=== PATIENT | female | born 1960 | race Hispanic/Latino ===

== ENCOUNTER 2019-05-23 14:05 | Observation (INO) | payer OTHER ==
--- NOTE | 2019-05-23 14:51 | Emergency Department Report ---
- General Chief complaint: Medical Clearance Stated complaint: LOW BLOOD PRESSURE/SYNCOPAL Source: patient, EMS Mode of arrival: Stretcher Limitations: No Limitations - History of Present Illness Initial comments: 58-year-old female with a past medical history of diabetes (insulin and pills) and hypertension presents to the hospital complains of no syncopal episode. Patient had taken a couple bites of her Lunch and had a sensation to have a bowel movement. In the bathroom she did have a bowel movement and she also had diaphoresis, generalized weakness, tunnel vision, perioral numbness and felt like she was going to pass out. She called for help and subsequently evaluated by the fire department. Patient was so diaphoretic they had to use additional gauze to secure EKG leads. Initial blood pressure 72/40 and Accu-Chek was 170. Patient received 4 Zofran and 700 mL of normal saline prior to arrival and feels back to normal with normal vital signs. She denies any preceding or current headache, chest pain, shortness of breath, abdominal pain, melena, hematochezia, hematemesis, fever, infectious symptoms, or dysuria. Denies history of CAD. States she had a stress test "a couple years ago" that was okay. She does not smoke cigarettes. PMD: [facility]. Severity scale (0 -10): 0 - Related Data Allergies Allergy/AdvReac Type Severity Reaction Status Date / Time No Known Allergies Allergy Unverified 05/23/19 14:18 ED Review of Systems ROS: Stated complaint: LOW BLOOD PRESSURE/SYNCOPAL Other details as noted in HPI Comment: All other systems reviewed and negative ED Past Medical Hx - Past Medical History Hx Hypertension: Yes Hx Diabetes: Yes - Surgical History Past Surgical History?: No - Social History Smoking Status: Never Smoker ED Physical Exam - General Limitations: No Limitations - Other Other exam information: General: No acute distress Head: Atraumatic Eyes: normal appearance ENT: Moist mucous membranes Neck: Normal appearance, no midline tenderness Chest: Clear to auscultation bilaterally CV: Regular rate and rhythm Abdomen: Soft, normal bowel sounds, nontender, nondistended, no rebound or guarding Back: Normal inspection Extremity: Normal inspection infection, full range of motion Neuro: Alert O x 3, no facial asymmetry, speech clear, no gross motor sensory deficit Psych: Appropriate behavior Skin: No rash - Assessment Assessment Interval: Baseline - Level of Consciousness 1a. Level of Consciousness: alert/keenly responsive - LOC Questions 1b. LOC Questions: answers both correctly - LOC Command 1c. LOC Commands: performs tasks correctly - Best Gaze 2. Best Gaze: normal - Visual 3. Visual: no visual loss - Facial Palsy 4. Facial Palsy: normal symmetrical movement - Motor Arm 5a. Motor Arm Left: no drift 5b. Motor Arm Right: no drift - Motor Leg 6a. Motor Leg Left: no drift 6b. Motor Leg Right: no drift - Limb Ataxia 7. Limb Ataxia: absent - Sensory 8. Sensory: normal - Best Language 9. Best Language: no aphasia - Dysarthria 10. Dysarthria: normal - Extinction and Inattention 11. Extinction/Inattention: no abnormality - Scoring Total Score: 0 Stroke Severity: No Stroke Symptoms ED Course Vital Signs 05/23/19 05/23/19 14:22 14:28 Temperature 97.9 F Pulse Rate 88 Respiratory 16 17 Rate Blood Pressure 112/57 [Right] O2 Sat by Pulse 97 97 Oximetry ED Medical Decision Making - Lab Data Result diagrams: 05/23/19 15:14 05/23/19 15:14 Lab Results 05/23/19 05/23/19 05/23/19 Range/Units 14:44 15:14 15:14 WBC 11.8 H (4.5-11.0) K/mm3 RBC 4.22 (3.65-5.03) M/mm3 Hgb 12.5 (10.1-14.3) gm/dl Hct 37.2 (30.3-42.9) % MCV 88 (79-97) fl MCH 30 (28-32) pg MCHC 34 (30-34) % RDW 13.8 (13.2-15.2) % Plt Count 333 (140-440) K/mm3 Lymph % (Auto) 16.7 (13.4-35.0) % [place] % (Auto) 6.4 (0.0-7.3) % Eos % (Auto) 1.1 (0.0-4.3) % Baso % (Auto) 0.6 (0.0-1.8) % Lymph # 2.0 (1.2-5.4) K/mm3 [place] # 0.8 (0.0-0.8) K/mm3 Eos # 0.1 (0.0-0.4) K/mm3 Baso # 0.1 (0.0-0.1) K/mm3 Seg Neutrophils % 75.2 H (40.0-70.0) % Seg Neutrophils # 8.9 H (1.8-7.7) K/mm3 PT 12.5 (12.2-14.9) Sec. INR 0.92 (0.87-1.13) APTT 25.4 (24.2-36.6) Sec. Sodium (137-145) mmol/L Potassium (3.6-5.0) mmol/L Chloride (98-107) mmol/L Carbon Dioxide (22-30) mmol/L Anion Gap mmol/L BUN (7-17) mg/dL Creatinine (0.7-1.2) mg/dL Estimated GFR ml/min BUN/Creatinine Ratio % Glucose (65-100) mg/dL POC Glucose 141 H (70-105) Calcium (8.4-10.2) mg/dL Magnesium (1.7-2.3) mg/dL Total Bilirubin (0.1-1.2) mg/dL AST (5-40) units/L ALT (7-56) units/L Alkaline Phosphatase (35-129) units/L Troponin T (0.00-0.029) ng/mL Total Protein (6.3-8.2) g/dL Albumin (3.9-5) g/dL Albumin/Globulin Ratio % 12/17/19 Range/Units 15:14 WBC (4.5-11.0) K/mm3 RBC (3.65-5.03) M/mm3 Hgb (10.1-14.3) gm/dl Hct (30.3-42.9) % MCV (79-97) fl MCH (28-32) pg MCHC (30-34) % RDW (13.2-15.2) % Plt Count (140-440) K/mm3 Lymph % (Auto) (13.4-35.0) % [place] % (Auto) (0.0-7.3) % Eos % (Auto) (0.0-4.3) % Baso % (Auto) (0.0-1.8) % Lymph # (1.2-5.4) K/mm3 [place] # (0.0-0.8) K/mm3 Eos # (0.0-0.4) K/mm3 Baso # (0.0-0.1) K/mm3 Seg Neutrophils % (40.0-70.0) % Seg Neutrophils # (1.8-7.7) K/mm3 PT (12.2-14.9) Sec. INR (0.87-1.13) APTT (24.2-36.6) Sec. Sodium 140 (137-145) mmol/L Potassium 4.2 (3.6-5.0) mmol/L Chloride 100.0 (98-107) mmol/L Carbon Dioxide 18 L (22-30) mmol/L Anion Gap 26 mmol/L BUN 21 H (7-17) mg/dL Creatinine 1.0 (0.7-1.2) mg/dL Estimated GFR 57 ml/min BUN/Creatinine Ratio 21 % Glucose 152 H (65-100) mg/dL POC Glucose (70-105) Calcium 9.7 (8.4-10.2) mg/dL Magnesium 1.60 L (1.7-2.3) mg/dL Total Bilirubin 0.20 (0.1-1.2) mg/dL AST 43 H (5-40) units/L ALT 30 (7-56) units/L Alkaline Phosphatase 53 (35-129) units/L Troponin T < 0.010 (0.00-0.029) ng/mL Total Protein 7.3 (6.3-8.2) g/dL Albumin 3.9 (3.9-5) g/dL Albumin/Globulin Ratio 1.1 % - EKG Data -: EKG Interpreted by [facility] EKG shows normal: sinus rhythm, ST-T waves (no stemi) Rate: normal - EKG Data When compared to previous EKG there are: previous EKG unavailable - Radiology Data Radiology results: report reviewed CHEST 1 VIEW INDICATION: near syncope. Syncopal episode yesterday COMPARISON: None FINDINGS: Support devices: None. Heart: Within normal limits. Lungs/Pleura: No acute air space or interstitial disease. Additional findings: None. IMPRESSION: 1. No acute findings. Critical Care Time: No Critical care attestation.: If time is entered above; I have spent that time in minutes in the direct care of this critically ill patient, excluding procedure time. ED Disposition Clinical Impression: Near syncope, Hypotension, Diaphoresis, Diabetes Disposition: 09 OP ADMIT IP TO THIS HOSP Is pt being admited?: Yes Condition: Stable Time of Disposition: 16:05 (Dr Vásquez/hosp)
--- NOTE | 2019-05-23 14:55 | XRay Report ---
CHEST 1 VIEW INDICATION: near syncope. Syncopal episode yesterday COMPARISON: None FINDINGS: Support devices: None. Heart: Within normal limits. Lungs/Pleura: No acute air space or interstitial disease. Additional findings: None. IMPRESSION: 1. No acute findings. Signer Name: Jamie Mistry MD Signed: 05/23/2019 2:51 PM Workstation Name: [id number]
[2019-05-23 15:33] LABS: Basophils # (Auto) 0.1 K/mm3 (0.0-0.1); Basophils % (Auto) 0.6 % (0.0-1.8); Eosinophils # (Auto) 0.1 K/mm3 (0.0-0.4); Eosinophils % (Auto) 1.1 % (0.0-4.3); Hematocrit 37.2 % (30.3-42.9); Hemoglobin 12.5 gm/dl (10.1-14.3); Lymphocytes % (Auto) 16.7 % (13.4-35.0); Mean Corpuscular HGB Conc 34 % (30-34); Mean Corpuscular Volume 88 fl (79-97); Monocytes # (Auto) 0.8 K/mm3 (0.0-0.8); Monocytes % (Auto) 6.4 % (0.0-7.3); Platelet Count 333 K/mm3 (140-440); Red Blood Count 4.22 M/mm3 (3.65-5.03); Red Cell Distribution Width 13.8 % (13.2-15.2)
[2019-05-23 15:42] LABS: INR 0.92 (0.87-1.13)
[2019-05-23 15:43] LABS: Partial Thromboplastin Time 25.4 Sec. (24.2-36.6)
[2019-05-23 15:54] LABS: Alanine Aminotransferase 30 units/L (7-56); Albumin 3.9 g/dL (3.9-5); BUN/Creatinine Ratio 21; Blood Urea Nitrogen 21 mg/dL (7-17); Calcium 9.7 mg/dL (8.4-10.2); Hemolysis Index 14
[2019-05-23 16:29] LABS: Bacteria,Urine 1+ /HPF (Negative); Bilirubin,Urine NEG (Negative); Blood,Urine NEG (Negative); Color,Urine Yellow (Yellow); Mucus,Urine FEW /HPF; Urobilinogen,Urine < 2.0 mg/dL (<2.0)
--- NOTE | 2019-05-23 21:30 | History and Physical Report ---
History of Present Illness Date of examination: 05/23/19 Date of admission: 05/23/19 16:06 Chief complaint: Near pass out 1 hr ago History of present illness: 58-year-old female with a past medical history of diabetes (insulin and pills) and hypertension presents to the hospital for nearly passing out.Was eating and became light headed and very diaporetic.Was about to pass out but could restrain herself.Patient is on Insulin for IDDM.Initial BG was in 140's No fever or chills.No HTN Past Medical History Hypertension: Yes Diabetes: Yes Surgical History Past Surgical History?: No Social History Smoking Status: Never Smoker Fam Hx Hypertension Review of Systems ROS: Stated complaint: LOW BLOOD PRESSURE/SYNCOPAL Other details as noted in HPI Comment: All other systems reviewed and negative Medications and Allergies Allergies Allergy/AdvReac Type Severity Reaction Status Date / Time No Known Allergies Allergy Unverified 05/23/19 14:18 Home Medications Medication Instructions Recorded Confirmed Last Taken Type Fenofibrate Nanocrystallized 160 mg PO QDAY 05/23/19 05/23/19 Unknown History [Fenofibrate] Icosapent Ethyl [Vascepa] 2 gm PO BID 05/23/19 05/23/19 Unknown History Insulin NPH Hum/Reg Insulin Hm 40 units SQ BID 05/23/19 05/23/19 Unknown History [HumuLIN 70-30 Vial] Liraglutide [Victoza 2-Joby] 1.8 mg SQ QDAY 05/23/19 05/23/19 Unknown History Losartan [Cozaar] 50 mg PO QDAY 05/23/19 05/23/19 Unknown History Metformin HCl [metFORMIN] 1,000 mg PO BID 05/23/19 05/23/19 Unknown History Venlafaxine [Effexor] 75 mg PO QDAY 05/23/19 05/23/19 Unknown History Exam - Constitutional Vitals: Temp Pulse Resp BP Pulse Ox 98.2 F 97 H 18 174/76 91 05/23/19 19:45 05/23/19 19:45 05/23/19 19:45 05/23/19 19:45 05/23/19 19:45 General appearance: Present: no acute distress, well-nourished - EENT Eyes: Present: PERRL ENT: hearing intact, clear oral mucosa - Neck Neck: Present: supple, normal ROM - Respiratory Respiratory effort: normal Respiratory: bilateral: CTA - Cardiovascular Heart rate: 78 Rhythm: regular Heart Sounds: Present: S1 & S2. Absent: rub, click - Extremities Extremities: no ischemia, pulses intact, pulses symmetrical, No edema Peripheral Pulses: within normal limits - Abdominal General gastrointestinal: Present: soft, non-tender, non-distended, normal bowel sounds Female genitourinary: Present: normal - Integumentary Integumentary: Present: clear, warm, dry - Musculoskeletal Musculoskeletal: gait normal, strength equal bilaterally - Psychiatric Psychiatric: appropriate mood/affect, intact judgment & insight - Neurologic Neurologic: CNII-XII intact, moves all extremities - Allied Health Allied health notes reviewed: nursing, case management Results - Labs CBC & Chem 7: 05/23/19 15:14 05/23/19 15:14 Labs: Laboratory Last Values WBC 11.8 K/mm3 (4.5-11.0) H 05/23/19 15:14 RBC 4.22 M/mm3 (3.65-5.03) 05/23/19 15:14 Hgb 12.5 gm/dl (10.1-14.3) 05/23/19 15:14 Hct 37.2 % (30.3-42.9) 05/23/19 15:14 MCV 88 fl (79-97) 05/23/19 15:14 MCH 30 pg (28-32) 05/23/19 15:14 MCHC 34 % (30-34) 05/23/19 15:14 RDW 13.8 % (13.2-15.2) 05/23/19 15:14 Plt Count 333 K/mm3 (140-440) 05/23/19 15:14 Lymph % (Auto) 16.7 % (13.4-35.0) 05/23/19 15:14 [place] % (Auto) 6.4 % (0.0-7.3) 05/23/19 15:14 Eos % (Auto) 1.1 % (0.0-4.3) 05/23/19 15:14 Baso % (Auto) 0.6 % (0.0-1.8) 05/23/19 15:14 Lymph # 2.0 K/mm3 (1.2-5.4) 05/23/19 15:14 [place] # 0.8 K/mm3 (0.0-0.8) 05/23/19 15:14 Eos # 0.1 K/mm3 (0.0-0.4) 05/23/19 15:14 Baso # 0.1 K/mm3 (0.0-0.1) 05/23/19 15:14 Seg Neutrophils % 75.2 % (40.0-70.0) H 05/23/19 15:14 Seg Neutrophils # 8.9 K/mm3 (1.8-7.7) H 05/23/19 15:14 PT 12.5 Sec. (12.2-14.9) 05/23/19 15:14 INR 0.92 (0.87-1.13) 05/23/19 15:14 APTT 25.4 Sec. (24.2-36.6) 05/23/19 15:14 Sodium 140 mmol/L (137-145) 05/23/19 15:14 Potassium 4.2 mmol/L (3.6-5.0) 05/23/19 15:14 Chloride 100.0 mmol/L (98-107) 05/23/19 15:14 Carbon Dioxide 18 mmol/L (22-30) L 05/23/19 15:14 Anion Gap 26 mmol/L 05/23/19 15:14 BUN 21 mg/dL (7-17) H 05/23/19 15:14 Creatinine 1.0 mg/dL (0.7-1.2) 05/23/19 15:14 Estimated GFR 57 ml/min 05/23/19 15:14 BUN/Creatinine Ratio 21 % 05/23/19 15:14 Glucose 152 mg/dL (65-100) H 05/23/19 15:14 POC Glucose 230 (70-105) H 05/23/19 21:10 Calcium 9.7 mg/dL (8.4-10.2) 05/23/19 15:14 Magnesium 1.60 mg/dL (1.7-2.3) L 05/23/19 15:14 Total Bilirubin 0.20 mg/dL (0.1-1.2) 05/23/19 15:14 AST 43 units/L (5-40) H 05/23/19 15:14 ALT 30 units/L (7-56) 05/23/19 15:14 Alkaline Phosphatase 53 units/L (35-129) 05/23/19 15:14 Troponin T < 0.010 ng/mL (0.00-0.029) 05/23/19 20:12 Troponin T < 0.010 ng/mL (0.00-0.029) 05/23/19 20:12 Total Protein 7.3 g/dL (6.3-8.2) 05/23/19 15:14 Albumin 3.9 g/dL (3.9-5) 05/23/19 15:14 Albumin/Globulin Ratio 1.1 % 05/23/19 15:14 Urine Color Yellow (Yellow) 05/23/19 15:51 Urine Turbidity Clear (Clear) 05/23/19 15:51 Urine pH 5.0 (5.0-7.0) 05/23/19 15:51 Ur Specific [place] 1.025 (1.003-1.030) 05/23/19 15:51 Urine Protein 100 mg/dl mg/dL (Negative) 05/23/19 15:51 Urine Glucose (UA) >=500 mg/dL (Negative) 05/23/19 15:51 Urine Ketones Neg mg/dL (Negative) 05/23/19 15:51 Urine Blood Neg (Negative) 05/23/19 15:51 Urine Nitrite Neg (Negative) 05/23/19 15:51 Urine Bilirubin Neg (Negative) 05/23/19 15:51 Urine Urobilinogen < 2.0 mg/dL (<2.0) 05/23/19 15:51 Ur Leukocyte Esterase Neg (Negative) 05/23/19 15:51 Urine WBC (Auto) 1.0 /HPF (0.0-6.0) 05/23/19 15:51 Urine RBC (Auto) 4.0 /HPF (0.0-6.0) 05/23/19 15:51 U Epithel Cells (Auto) 1.0 /HPF (0-13.0) 05/23/19 15:51 Urine Bacteria (Auto) 1+ /HPF (Negative) 05/23/19 15:51 Urine Mucus Few /HPF 05/23/19 15:51 Short CBC 05/23/19 Range/Units 15:14 WBC 11.8 H (4.5-11.0) K/mm3 Hgb 12.5 (10.1-14.3) gm/dl Hct 37.2 (30.3-42.9) % Plt Count 333 (140-440) K/mm3 BMP 05/23/19 15:14 Sodium 140 Potassium 4.2 Chloride 100.0 Carbon Dioxide 18 L BUN 21 H Creatinine 1.0 Glucose 152 H Calcium 9.7 Cardiac Enzymes 05/23/19 05/23/19 05/23/19 Range/Units 15:14 20:12 20:12 Troponin T < 0.010 < 0.010 < 0.010 (0.00-0.029) ng/mL 05/23/19 05/24/19 Range/Units 21:56 04:33 Troponin T < 0.010 < 0.010 (0.00-0.029) ng/mL Liver Function 05/23/19 Range/Units 15:14 Total Bilirubin 0.20 (0.1-1.2) mg/dL AST 43 H (5-40) units/L ALT 30 (7-56) units/L Alkaline Phosphatase 53 (35-129) units/L Albumin 3.9 (3.9-5) g/dL Urine 05/23/19 Range/Units 15:51 Urine Color Yellow (Yellow) Urine pH 5.0 (5.0-7.0) Ur Specific [place] 1.025 (1.003-1.030) Urine Protein 100 mg/dl (Negative) mg/dL Urine Glucose (UA) >=500 (Negative) mg/dL - Imaging and Cardiology EKG: report reviewed Chest x-ray: report reviewed (NAF) Assessment and Plan Advance Directives: Yes (Full code) VTE prophylaxis?: Chemical Plan of care discussed with patient/family: Yes - Patient Problems (1) Near syncope Current Visit: Yes Status: Acute Plan to address problem: Syncope w/u Probably vasovagal BG was normal. 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
[2019-05-23] MEDS ORDERED: ACETAMINOPHEN 325 MG TAB PO PRN (21:58)
[2019-05-23] MEDS ORDERED: ICOSAPENT ETHYL 2 GM PO SCH (22:00)
[2019-05-23] MEDS: LOSARTAN 50 MG TAB PO SCH (22:15)
[2019-05-23] MEDS: VENLAFAXINE 75 MG TAB PO SCH (22:16)
[2019-05-23] MEDS: metFORMIN 500 MG TAB PO SCH (22:16)
[2019-05-23] MEDS: INSULIN NPH/REGULAR 70/30 INJ SUB-Q SCH (22:35)
[2019-05-24] MEDS ORDERED: REGADENOSON 0.4 MG/5 ML INJ IV ONE (07:30)
[2019-05-24] MEDS ORDERED: MAGNESIUM SULFATE 2 GM/50 ML BAG IV ONE (09:00)
[2019-05-24] MEDS ORDERED: FENOFIBRATE 145 MG TAB PO SCH (10:00)
[2019-05-24] MEDS: LOSARTAN 50 MG TAB PO SCH (11:55)
[2019-05-24] MEDS: VENLAFAXINE 75 MG TAB PO SCH (11:55)
[2019-05-24 11:56] VITALS: BP 173/90
[2019-05-24] MEDS: metFORMIN 500 MG TAB PO SCH ×2 (11:56→17:27)
[2019-05-24] MEDS: INSULIN NPH/REGULAR 70/30 INJ SUB-Q SCH (12:25)
--- NOTE | 2019-05-24 13:36 | Vascular Lab Report ---
"DUPLEX DOPPLER ULTRASOUND CAROTID, BILATERAL INDICATION: syncope. FINDINGS: RIGHT CAROTID: Mild scattered. Atherosclerotic plaque. Right CCA velocity: 75 cm/sec. Right ICA peak systolic velocity: 76 cm/sec. ICA/CCA PSV Ratio: 1. Right Vertebral Artery: Antegrade flow. LEFT CAROTID: Mild scattered atherosclerotic plaque. Left CCA velocity: 85 cm/sec. Left ICA peak systolic velocity: 78 cm/sec. ICA/CCA PSV Ratio: 0.9. Left Vertebral Artery: Antegrade flow. IMPRESSION: 1. Right Internal Carotid Artery: Less than 50% diameter stenosis. 2. Left Internal Carotid Artery: Less than 50% diameter stenosis. Velocity criteria are extrapolated from diameter data as defined by the Society of Radiologists in Ul trasound Consensus Conference, Radiology 2003; 229;340-346. Degree of || ICA PSV || Plaque || ICA/CCA Stenosis (%) || (cm/sec) || estimate (%) || PSV Ratio - Normal...............<125..............None.................<2.0 - <50....................<125..............<50....................<2.0 - 50-69................125-230.........>50....................2.0-4.0 - >70 but <100....>230..............>50....................>4.0 - Near...................High, low, .....visible................variable occlusion or none - Total...................None.............visible;................N/A occlusion no lumen Signer Name: Obey Brambila MD Signed: 05/24/2019 1:32 PM Workstation Name: [id number]"
--- NOTE | 2019-05-24 15:29 | Discharge Summary ---
Providers - Providers Date of Admission: 05/23/19 16:06 Date of discharge: 05/24/19 Attending physician: ERICKA MCNALLY Primary care physician: [employer] Hospitalization Condition: Stable Hospital course: Patient is a 58 yo woman with a past medical history of type 2 IDDM (on insulin and pills) and hypertension who presents with Near syncope episode associated with diaphoresis, generalized weakness, tunnel vision, perioral numbness and felt like she was going to pass out with having a bowel movement. Initial blood pressure was 72/40 and Accu-Chek was 170. PMD: [facility]. She was just started on new medication called Jaridance via office samples from PMD. Jardiance can cause orthostatic hypotension. Near syncope -most likely due to new medication Jardiance causing OH -stop Jardiance -negative stress test -negative Carotid doppler -ECHO pending, I called and spoke with Dr. 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 Plan to address problem: Cnt coverage stop Jardiance (interersting to note that she is on Victoza along with 70/30 and metformin then Jardiance was added)-unusually combo Education done DVT prophylaxis Current Visit: Yes Status: Acute Plan to address problem: On Heparin and GI prophylaxis Disposition: TO HOME OR SELFCARE Time spent for discharge: 34 minutes Core Measure Documentation - Palliative Care Palliative Care/ Comfort Measures: Not Applicable - Core Measures Any of the following diagnoses?: none - VTE Discharge Requirements Deep Vein Thrombosis/Pulmonary Embolism Present on Admission: No Has pt received <5 days of overlap therapy or INR<2.0: No Anticoagulant overlap therapy prescribed at discharge: No Contraindication No Overlap Therapy order at DC: Not Indicated Exam - Physical Exam Narrative exam: Gen: WDWN, NAD, Awake, Alert, Orientated x 2 HEENT: NCAT, EOMI, PERRL, OP Clear Neck: supple, no adenopathy, no thyromegaly, no JVD CVS/Heart: RRR, normal S1S2, pulses present bilaterally Chest/Lungs: CTA B, Symmetrical chest expansion, good air entry bilaterally GI/Abdomen: soft, NTND, good bowel sounds, no guarding or rebound /Bladder: no suprapubic tenderness, no CVA or paraspinal tenderness Extermity/Skin: no c/c/e, no obvious rash, multiple color tattoos MSK: FROM x 4 Neuro: CN 2-12 grossly intact, no new focal deficits Psych: calm - Constitutional Vitals: Temp Pulse Resp BP Pulse Ox 98.0 F 94 H 18 173/90 98 05/24/19 04:25 05/24/19 11:55 05/24/19 13:01 05/24/19 11:55 05/24/19 13:01 Plan Activity: other (no strenous activity until cleared by PCP) Diet: low salt, diabetic Special Instructions: record blood sugar diary (fasting then with meals) Additional Instructions: 1) One of the major adverse reaction Jardiance is (orthostatic) Hypotension, so stop taking and notify your PCP Follow up with: PRIMARY MD YOSELIN [Primary Care Provider] - 3-5 Days
--- NOTE | 2019-05-24 15:43 | Progress Note ---
Assessment and Plan Assessment and plan: Patient is a 58 yo woman with a past medical history of type 2 IDDM (on insulin and pills) and hypertension who presents with Near syncope episode associated with diaphoresis, generalized weakness, tunnel vision, perioral numbness and felt like she was going to pass out with having a bowel movement. Initial blood pressure was 72/40 and Accu-Chek was 170. PMD: [facility]. She was just started on new medication called Jaridance via office samples from PMD. Jardiance can cause orthostatic hypotension. Near syncope -most likely due to new medication Jardiance causing OH -stop Jardiance -negative stress test -negative Carotid doppler -ECHO pending, I called and spoke with Dr. Farrar, unavailable at this time Hypotension -Iatrogenic related resolved HTN (hypertension) Current Visit: Yes Status: Chronic Qualifiers: Hypertension type: essential hypertension Qualified Code(s): I10 - Essential (primary) hypertension Plan to address problem: Cont antihypertensives T2DM (type 2 diabetes mellitus) Current Visit: Yes Status: Chronic Qualifiers: Diabetes mellitus oysterman insulin use: unspecified oysterman insulin use status Plan to address problem: Cnt coverage stop Jardiance (interersting to note that she is on Victoza along with 70/30 and metformin then Jardiance was added)-unusually combo Education done DVT prophylaxis Current Visit: Yes Status: Acute Plan to address problem: On Heparin and GI prophylaxis Disposition: continue obs care, ready for discharge, waiting on ECHO results History Interval history: Patient was seen and examined. Follow-up on current diagnosis of Near syncope. No overnight events reported to me. Patient denies any chest pain, shortness breath, nausea/vomiting or severe headaches. Imaging, nursing note, chart, labs and old chart reviewed. Discussed with patient. Hospitalist Physical - Physical exam Narrative exam: Gen: WDWN, NAD, Awake, Alert, Orientated x 2 HEENT: NCAT, EOMI, PERRL, OP Clear Neck: supple, no adenopathy, no thyromegaly, no JVD CVS/Heart: RRR, normal S1S2, pulses present bilaterally Chest/Lungs: CTA B, Symmetrical chest expansion, good air entry bilaterally GI/Abdomen: soft, NTND, good bowel sounds, no guarding or rebound /Bladder: no suprapubic tenderness, no CVA or paraspinal tenderness Extermity/Skin: no c/c/e, no obvious rash, multiple color tattoos MSK: FROM x 4 Neuro: CN 2-12 grossly intact, no new focal deficits Psych: calm - Constitutional Vitals: Temp Pulse Resp BP Pulse Ox 98.0 F 94 H 18 173/90 98 05/24/19 04:25 05/24/19 11:55 05/24/19 13:01 05/24/19 11:55 05/24/19 13:01 General appearance: Present: no acute distress, well-nourished Results - Labs CBC & Chem 7: 05/23/19 15:14 05/23/19 15:14 Labs: Laboratory Last Values WBC 11.8 K/mm3 (4.5-11.0) H 05/23/19 15:14 RBC 4.22 M/mm3 (3.65-5.03) 05/23/19 15:14 Hgb 12.5 gm/dl (10.1-14.3) 05/23/19 15:14 Hct 37.2 % (30.3-42.9) 05/23/19 15:14 MCV 88 fl (79-97) 05/23/19 15:14 MCH 30 pg (28-32) 05/23/19 15:14 MCHC 34 % (30-34) 05/23/19 15:14 RDW 13.8 % (13.2-15.2) 05/23/19 15:14 Plt Count 333 K/mm3 (140-440) 05/23/19 15:14 Lymph % (Auto) 16.7 % (13.4-35.0) 05/23/19 15:14 Rhea % (Auto) 6.4 % (0.0-7.3) 05/23/19 15:14 Eos % (Auto) 1.1 % (0.0-4.3) 05/23/19 15:14 Baso % (Auto) 0.6 % (0.0-1.8) 05/23/19 15:14 Lymph # 2.0 K/mm3 (1.2-5.4) 05/23/19 15:14 Rhea # 0.8 K/mm3 (0.0-0.8) 05/23/19 15:14 Eos # 0.1 K/mm3 (0.0-0.4) 05/23/19 15:14 Baso # 0.1 K/mm3 (0.0-0.1) 05/23/19 15:14 Seg Neutrophils % 75.2 % (40.0-70.0) H 05/23/19 15:14 Seg Neutrophils # 8.9 K/mm3 (1.8-7.7) H 05/23/19 15:14 PT 12.5 Sec. (12.2-14.9) 05/23/19 15:14 INR 0.92 (0.87-1.13) 05/23/19 15:14 APTT 25.4 Sec. (24.2-36.6) 05/23/19 15:14 Sodium 140 mmol/L (137-145) 05/23/19 15:14 Potassium 4.2 mmol/L (3.6-5.0) 05/23/19 15:14 Chloride 100.0 mmol/L (98-107) 05/23/19 15:14 Carbon Dioxide 18 mmol/L (22-30) L 05/23/19 15:14 Anion Gap 26 mmol/L 05/23/19 15:14 BUN 21 mg/dL (7-17) H 05/23/19 15:14 Creatinine 1.0 mg/dL (0.7-1.2) 05/23/19 15:14 Estimated GFR 57 ml/min 05/23/19 15:14 BUN/Creatinine Ratio 21 % 05/23/19 15:14 Glucose 152 mg/dL (65-100) H 05/23/19 15:14 POC Glucose 218 (70-105) H 05/24/19 12:10 Calcium 9.7 mg/dL (8.4-10.2) 05/23/19 15:14 Magnesium 1.60 mg/dL (1.7-2.3) L 05/23/19 15:14 Total Bilirubin 0.20 mg/dL (0.1-1.2) 05/23/19 15:14 AST 43 units/L (5-40) H 05/23/19 15:14 ALT 30 units/L (7-56) 05/23/19 15:14 Alkaline Phosphatase 53 units/L (35-129) 05/23/19 15:14 Troponin T < 0.010 ng/mL (0.00-0.029) 05/24/19 04:33 Total Protein 7.3 g/dL (6.3-8.2) 05/23/19 15:14 Albumin 3.9 g/dL (3.9-5) 05/23/19 15:14 Albumin/Globulin Ratio 1.1 % 05/23/19 15:14 Urine Color Yellow (Yellow) 05/23/19 15:51 Urine Turbidity Clear (Clear) 05/23/19 15:51 Urine pH 5.0 (5.0-7.0) 05/23/19 15:51 Ur Specific [place] 1.025 (1.003-1.030) 05/23/19 15:51 Urine Protein 100 mg/dl mg/dL (Negative) 05/23/19 15:51 Urine Glucose (UA) >=500 mg/dL (Negative) 05/23/19 15:51 Urine Ketones Neg mg/dL (Negative) 05/23/19 15:51 Urine Blood Neg (Negative) 05/23/19 15:51 Urine Nitrite Neg (Negative) 05/23/19 15:51 Urine Bilirubin Neg (Negative) 05/23/19 15:51 Urine Urobilinogen < 2.0 mg/dL (<2.0) 05/23/19 15:51 Ur Leukocyte Esterase Neg (Negative) 05/23/19 15:51 Urine WBC (Auto) 1.0 /HPF (0.0-6.0) 05/23/19 15:51 Urine RBC (Auto) 4.0 /HPF (0.0-6.0) 05/23/19 15:51 U Epithel Cells (Auto) 1.0 /HPF (0-13.0) 05/23/19 15:51 Urine Bacteria (Auto) 1+ /HPF (Negative) 05/23/19 15:51 Urine Mucus Few /HPF 05/23/19 15:51 Active Medications - Current Medications Current Medications: Generic Name Dose Route Start Last Admin Trade Name Freq PRN Reason Stop Dose Admin Acetaminophen 650 mg 05/23/19 21:58 05/23/19 22:17 Tylenol PO 650 mg Q4H PRN Administration Pain, Mild (1-3) Fenofibrate 145 mg 05/24/19 10:00 05/24/19 11:55 Tricor PO 145 mg DAILY CATHERINE Administration Insulin Human Isoph/Insulin Regular 30 unit 05/23/19 22:00 05/24/19 12:25 Humulin 70/30 SUB-Q 30 unit BID CATHERINE Administration Losartan Potassium 50 mg 05/23/19 22:00 05/24/19 11:55 Cozaar PO 50 mg QDAY CATHERINE Administration Metformin HCl 1,000 mg 05/23/19 22:00 05/24/19 11:56 Glucophage PO 1,000 mg BIDDIAB CATHERINE Administration Miscellaneous Medication 2 gm 05/23/19 22:00 Icosapent Ethyl [Vascepa] PO BID CATHERINE Venlafaxine HCl 75 mg 05/23/19 22:00 05/24/19 11:55 Effexor PO 75 mg QDAY CATHERINE Administration Nutrition/Malnutrition Assess - Dietary Evaluation Nutrition/Malnutrition Findings: Nutrition Notes Start: 05/24/19 12:03 Freq: Status: Active Protocol: Document 05/24/19 12:03 PS (Rec: 05/24/19 12:10 PS [id number]) Co-Sign 05/24/19 12:03 LM Nutrition Notes 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 Pt. stated she was eating well [employer] and has had no wt loss. Pt. accepted Diabetes education handout. #1 Nutrition Diagnosis Food and nutrition-related knowledge deficit Etiology no prior education on diabetes nutrition As Evidenced by Signs and Symptoms pt needing education,new onset diabetes, and POC Glu of 218 Nutrition Intervention Teaching Recipient Patient Learning Readiness Good Teaching Methods Discussion,Handout Response to Teaching Verbalize understanding Education Handouts Provided Diabetes Nutrition Therapy Barriers to Learning No Barriers RD phone number provided Yes Patient aware of follow up options Yes Anticipated Discharge Needs: Cardiac/Consistent CHO Diet Revisit per MD consult or patient Sign Off request:
--- NOTE | 2019-05-29 15:21 | Treadmill Report ---
ORDERING PHYSICIAN: Johnathon Vásquez MD INDICATION: Chest pain. FINDINGS: There is no scintigraphic evidence of myocardial ischemia. The left ventricle is normal in size. The left ventricular ejection fraction is measured at 74%. Normal wall motion and wall thickening is noted on gated imaging. CONCLUSION: Normal perfusion scan. JOB# [id number] AKFelipe/NTS
== END 2019-05-24 18:44 | disposition home or self-care (01) ==
LOC: ED 14:05 → 4A 16:06
PROVIDERS: ADMIT Internal Medicine; ATTEND Internal Medicine
DX: R55 Syncope and collapse (principal); I10 Essential (primary) hypertension; E11.9 Type 2 diabetes mellitus without complications; R61 Generalized hyperhidrosis; I95.9 Hypotension, unspecified
CPT/HCPCS: 36415; 71045; 78452; 80053; 81001; 82962; 83735; 84484; 85025; 85610; 85730; 93005; 93010; 93017; 93306; 93880; 96365; 96366; 96372; 99284; A9502; G0378; J2785; J3475; J1815